=== PATIENT | female | born 1935 | race Caucasian/White ===

== ENCOUNTER 2022-11-05 12:16 | Emergency (ER) | payer OTHER ==
--- NOTE | 2022-11-05 13:11 | RAD REPORT ---
EXAM DESCRIPTION: CT - Head C Spine Cap Wo Con - 11/05/2022 12:31 pm CLINICAL HISTORY: fall, back pain, chest pain, abd pain COMPARISON: Brain W/Wo Cont dated 11/04/2022 TECHNIQUE: Head and cervical spine CT images were obtained without IV contrast. Chest, abdomen, and pelvis CT images were obtained without IV contrast as well. Multiplanar reformats were generated and reviewed. All CT scans are performed using dose optimization technique as appropriate and may include automated exposure control or mA/KV adjustment according to patient size. FINDINGS: CT HEAD: No intracranial hemorrhage, mass effect, or edema. No evidence of acute territorial infarct. No midli ne shift or abnormal fluid collection. Encephalomalacia involving the parasagittal left parietal and posterior temporal region. Focus of hypoattenuation in the right basal ganglia. Findings likely relat e to chronic small vessel ischemic changes. The ventricles are normal in caliber and configuration fo r age. Basal cisterns are patent. Mastoid aircells and paranasal sinuses are clear. No acute skull fr acture. CT CERVICAL SPINE: No acute cervical spine fracture or subluxation. Vertebral body heights are well maintained. Facet damaris ints are normal in alignment. No hyperattenuating canal hematoma. Prevertebral and paraspinous soft t issues are unremarkable. CT CHEST: No pneumothorax, pulmonary contusion or pleural fluid collection. Multifocal nodular and ground-glass opacities, predominantly throughout the dependent aspect of both lungs, including multiple nodular o pacities on the right, which may relate to airspace disease, however these could obscure suspicious f indings. Segmental opacification in the dependent lower lobes more pronounced on the left. No mediast inal hematoma and the aorta and pulmonary arteries are unremarkable. No chest will mass or abnormal a xillary finding. No displaced rib fracture or other significant bony finding. CT ABDOMEN/ PELVIS: No evidence of traumatic injury to solid abdominal viscera. Gallbladder and biliary tree are unremark able. Colonic diverticulosis. Fusiform infrarenal abdominal aortic aneurysm, with aneurysm sac measur ing up to 5.1 x 4.9 centimeter in greatest axial dimensions. Atrophic changes of the right kidney. Ri ght renal cysts, largest at the lower pole 3.6 centimeter. No bowel injury or significant finding. No free air, free fluid or abnormal fat stranding. No urinary bladder abnormality. No significant bony finding. IMPRESSION: No acute traumatic findings. Multifocal nodular and ground-glass opacities throughout the dependent aspects of both lungs, with mo re pronounced nodular appearance on the right. These are favored to represent airspace disease/pneumo bienvenido. Short-term interval follow-up CT imaging of the chest in 1-3 months, following resolution of any acute findings is recommended to exclude underlying suspicious abnormalities. Other incidental findings as above, including a fusiform infrarenal abdominal aortic aneurysm measuri ng up to 5.1 centimeter in greatest aneurysm sac diameter. Correlation with prior imaging if availabl e, and follow-up with vascular surgery, if not already established, are recommended.
--- NOTE | 2022-11-05 14:21 | ER ---
Nurse's Notes [facility] Name: Karely Jaramillo Age: 87 yrs Sex: Female : 1935 Arrival Date: 11/05/2022 Time: 12:16 Bed 3 Private MD: Diagnosis: Fall on same level from slipping, tripping and stumbling without subsequent striking against object;Contusion of lower back and pelvis;Contusion of back wall of thorax;Abdominal aortic aneurysm, without rupture;Pneumonia, unspecified organism Presentation: 11/05 12:23 Chief complaint: EMS states: Pt fell at 0330 this morning. Pt's daughter called EMS due cm10 to increased pain. Pt complaining of right flank pain that radiates to her left flank. Coronavirus screen: Vaccine status: Patient reports receiving the 2nd dose of the covid vaccine. Client denies travel out of the [place] in the last 14 days. Ebola Screen: No symptoms or risks identified at this time. Initial Sepsis Screen: Does the patient meet any 2 criteria? No. Patient's initial sepsis screen is negative. Does the patient have a suspected source of infection? No. Patient's initial sepsis screen is negative. Risk Assessment: Do you want to hurt yourself or someone else? Patient reports no desire to harm self or others. Onset of symptoms. Care prior to arrival: Medication(s) given: Toradol 30mg IV initiated. 22 GA, in the right forearm. 12:23 Method Of Arrival: EMS: [facility] cm10 12:23 Acuity: MILDRED 3 cm10 Historical: - Allergies: 12:25 steroids; cm10 - Home Meds: 12:25 Plavix 75 mg Oral tablet [Active]; aspirin 81 mg Oral capsule [Active]; atorvastatin 10 cm10 mg oral tablet [Active]; levothyroxine 25 mcg tablet [Active]; metoprolol tartrate 25 mg Oral tablet [Active]; Pacerone 100 mg oral tablet [Active]; - PMHx: 12:28 afib; Hypothyroidism; high cholesterol; cm10 12:28 Cerebrovascular accident; CKD; Myocardial infarction; cm10 - PSHx: 12:28 Cholecystectomy; cm10 - Immunization history:: Adult Immunizations up to date. - Social history:: Smoking status: Patient denies any tobacco usage or history of. - Family history:: not pertinent. - Hospitalizations: : No recent hospitalization is reported. Screenin:25 [facility] ED Fall Risk Assessment (Adult) History of falling in the last 3 months, ld1 including since admission No falls in past 3 months (0 pts). [facility] ED Fall Risk Assessment (Adult) History of falling in the last 3 months, including since admission Yes- single mechanical fall (1 pt). Abuse screen: Denies threats or abuse. Denies injuries from another. Nutritional screening: No deficits noted. Tuberculosis screening: No symptoms or risk factors identified. Assessment: 13:24 Reassessment: Patient is alert, oriented x 3, equal unlabored respirations, skin ld1 warm/dry/pink. See triage assessment. General: Appears in no apparent distress. comfortable, Behavior is calm, cooperative, appropriate for age. Pain: Complains of pain in back Pain does not radiate. Pain currently is 7 out of 10 on a pain scale. Quality of pain is described as throbbing. Neuro: Level of Consciousness is awake, alert, obeys commands, Oriented to person, place, time, situation. Cardiovascular: Capillary refill < 3 seconds Patient's skin is warm and dry. Cardiovascular: Rhythm is sinus bradycardia. Respiratory: Airway is patent Respiratory effort is even, unlabored. GI: Abdomen is flat, non-distended. Vital Signs: 12:23 BP 142 / 66; Pulse 60; Resp 16; Pulse Ox 95% on R/A; Weight 36.29 kg; Pain 5/10; cm10 13:18 BP 118 / 62; Pulse 56; Resp 18; Pulse Ox 96% on R/A; ld1 13:24 BP 118 / 62; Pulse 55; Resp 18; Pulse Ox 96% on R/A; ld1 14:52 BP 131 / 69; Pulse 54; Resp 16; Pulse Ox 94% on R/A; cm10 12:23 Pain Scale: Adult cm10 ED Course: 12:20 Patient arrived in ED. rn 12:20 Etienne Linton MD is Attending Physician. rn 12:25 Triage completed. cm10 12:29 Charlette Soto, YASHIRA is Primary Nurse. cm10 12:29 Arm band placed on Patient placed in an exam room, on a stretcher. cm10 12:33 CT Traumagram (Head C Spine CAP wo con) In Process Unspecified. EDMS 13:25 Patient has correct armband on for positive identification. Placed in gown. Bed in low ld1 position. Call light in reach. Side rails up X2. clinical research monitor on. Pulse ox on. NIBP on. Door closed. Noise minimized. Warm blanket given. 13:25 No provider procedures requiring assistance completed. ld1 13:25 Maintain EMS IV. Dressing intact. Good blood return noted. Site clean \T\ dry. Gauge \T\ ld 1 site: 20G RAC. 13:56 ED physician to see patient. cm10 14:52 IV discontinued, intact, bleeding controlled, No redness/swelling at site. Pressure cm10 dressing applied. Administered Medications: 14:51 Drug: traMADol PO 50 mg Route: PO; cm10 14:51 Follow up: Response: No adverse reaction cm10 Medication: 13:25 VIS not applicable for this client. ld1 Outcome: 14:20 Discharge ordered by . rn 14:52 Discharged to home via wheelchair, with family. cm10 14:52 Condition: good 14:52 Discharge instructions given to manager of compensation, Instructed on discharge instructions, follow up and referral plans. medication usage, Demonstrated understanding of instructions, follow-up care, medications, Prescriptions given X 2. 14:53 Patient left the ED. cm10 Signatures: Dispatcher [employer] EDMS Etienne Linton MD MD rn Sims, Lauren, RN RN ld1 Charlette Soto RN RN cm10
--- NOTE | 2022-11-05 14:21 | EDPHYS ---
Physician Documentation [facility] Name: Karely Jaramillo Age: 87 yrs Sex: Female : 1935 Arrival Date: 11/05/2022 Time: 12:16 Bed 3 Private MD: ED Physician Etienne Linton HPI: 11/05 14:17 This 87 yrs old Female presents to ER via EMS with complaints of Fall Injury, Back Pain.rn 14:17 Details of fall: The patient fell from an upright position. Onset: The symptoms/episode rn began/occurred just prior to arrival. Associated injuries: The patient sustained upper back injury, injury to the low back. Severity of symptoms: At their worst the symptoms were mild, in the emergency department the symptoms are unchanged. The patient has not experienced similar symptoms in the past. The patient has not recently seen a physician. Pt reports fall from standing, fell onto back, no head injury, reports back pain. . Historical: - Allergies: 12:25 steroids; cm10 - Home Meds: 12:25 Plavix 75 mg Oral tablet [Active]; aspirin 81 mg Oral capsule [Active]; atorvastatin 10 cm10 mg oral tablet [Active]; levothyroxine 25 mcg tablet [Active]; metoprolol tartrate 25 mg Oral tablet [Active]; Pacerone 100 mg oral tablet [Active]; - PMHx: 12:28 afib; Hypothyroidism; high cholesterol; cm10 12:28 Cerebrovascular accident; CKD; Myocardial infarction; cm10 - PSHx: 12:28 Cholecystectomy; cm10 - Immunization history:: Adult Immunizations up to date. - Social history:: Smoking status: Patient denies any tobacco usage or history of. - Family history:: not pertinent. - Hospitalizations: : No recent hospitalization is reported. ROS: 14:17 Constitutional: Negative for fever, chills, and weight loss, Eyes: Negative for injury, rn pain, redness, and discharge, Neck: Negative for injury, pain, and swelling, Cardiovascular: Negative for chest pain, palpitations, and edema, Respiratory: Negative for shortness of breath, cough, wheezing, and pleuritic chest pain, Abdomen/GI: + abd pain Back: + back pain MS/Extremity: Negative for injury and deformity, Skin: Negative for injury, rash, and discoloration, Neuro: Negative for headache, weakness, numbness, tingling, and seizure. Exam: 14:17 Constitutional: This is a well developed, well nourished patient who is awake, alert, rn and in no acute distress. Neck: NO midline cervical tenderness Chest/axilla: No bony tenderness or crepitus Cardiovascular: Bradycardic, regular. No pulse deficits. Respiratory: No increased work of breathing, no retractions or nasal flaring. Abdomen/GI: soft, mild mid abd tenderness Back: upper lumbar and lower thoracic perispinal tenderness, no swelling or flank ecchymosis Skin: Warm, dry MS/ Extremity: Pulses equal, no cyanosis. Neuro: Awake and alert, GCS 15, oriented to person, place, and situation. Cranial nerves II-XII grossly intact. Motor strength 4/5 in all extremities. Sensory grossly intact. Vital Signs: 12:23 BP 142 / 66; Pulse 60; Resp 16; Pulse Ox 95% on R/A; Weight 36.29 kg; Pain 5/10; cm10 13:18 BP 118 / 62; Pulse 56; Resp 18; Pulse Ox 96% on R/A; ld1 13:24 BP 118 / 62; Pulse 55; Resp 18; Pulse Ox 96% on R/A; ld1 14:52 BP 131 / 69; Pulse 54; Resp 16; Pulse Ox 94% on R/A; cm10 12:23 Pain Scale: Adult cm10 MDM: 12:21 Patient medically screened. rn 14:02 ED course: CT without acute traumatic findings. Incidental findings of interstitial rn process, perhaps residual pneumonia. Daughter reports recent [facility] admission and was treated with 5 day course of abx, still coughing, but not as bad. CT also shows incidental finding of aortic aneurysm, which daughter states has known about for atleast 12 years, doesn't get annual evaluations of it since moving to this area, and states patient DNR and would not want surgery anyway. Recommend f/u with pcp and vascular surgery for tracking aneurysm size. No acute traumatic findings, and will dc home with return precautions.. 14:17 Differential diagnosis: closed head injury, contusion, fracture, multiple trauma. Data rn reviewed: vital signs, nurses notes, radiologic studies, CT scan, and as a result, I will discharge patient. Counseling: I had a detailed discussion with the patient and/or guardian regarding: the historical points, exam findings, and any diagnostic results supporting the discharge/admit diagnosis, radiology results, the need for outpatient follow up, to return to the emergency department if symptoms worsen or persist or if there are any questions or concerns that arise at home. Special discussion: I discussed with the patient/guardian in detail that at this point there is no indication for admission to the hospital. It is understood, however, that if the symptoms persist or worsen the patient needs to return immediately for re-evaluation. 11/05 12:22 Order name: CT Traumagram (Head C Spine CAP wo con); Complete Time: 13:27 rn 11/05 12:22 Order name: IV Start; Complete Time: 12:23 rn Administered Medications: 14:51 Drug: traMADol PO 50 mg Route: PO; [facility] 14:51 Follow up: Response: No adverse reaction cm10 Disposition Summary: 11/05/22 14:20 Discharge Ordered Location: Home rn Problem: new rn Symptoms: have improved rn Condition: Stable rn Diagnosis - Fall on same level from slipping, tripping and stumbling without subsequent rn striking against object - Contusion of lower back and pelvis rn - Contusion of back wall of thorax rn - Abdominal aortic aneurysm, without rupture rn - Pneumonia, unspecified organism rn Followup: rn - With: Private Physician - When: As needed - Reason: Recheck today's complaints, Re-evaluation by your physician Discharge Instructions: - Discharge Summary Sheet rn - Abdominal Aortic Aneurysm rn - Contusion rn - Fall Prevention in the Home, Adult rn Forms: - Medication Reconciliation Form rn - Thank You Letter rn - Antibiotic ldr rn - Prescription Opioid Use r[facility] - [email or web address] rn Prescriptions: - Augmentin 875-125 mg Oral Tablet - take 1 tablet by ORAL route every 12 hours for 10 days; 20 tablet; Refills: 0, rn Product Selection Permitted - Tramadol 50 mg Oral Tablet - take 1 tablet by ORAL route every 8 hours as needed; 12 tablet; Refills: 0, rn Product Selection Permitted Signatures: Dispatcher [employer] Etienne Antunez MD MD rn Martinez, Clarissa, RN RN cm10
[2022-11-05] MEDS ORDERED: TRAMADOL HCL 50 MG TAB ONE (14:41)
[2022-11-05 15:17] VITALS: BP 131/69; O2SAT 94
== END 2022-11-05 14:53 | disposition home or self-care (01) ==
LOC: ER 12:16
DX: S30.0XXA Contusion of lower back and pelvis, initial encounter (principal); S20.229A Contusion of unspecified back wall of thorax, initial encounter; I71.40 Abdominal aortic aneurysm, without rupture, unspecified; J18.9 Pneumonia, unspecified organism; W01.0XXA Fall on same level from slipping, tripping and stumbling without subsequent striking against object, initial encounter; N18.9 Chronic kidney disease, unspecified; I48.91 Unspecified atrial fibrillation; Z79.01 Long term (current) use of anticoagulants; E03.9 Hypothyroidism, unspecified; Z88.8 Allergy status to other drugs, medicaments and biological substances
CPT/HCPCS: 70450; 71250; 72125; 99284